=== PATIENT | male | born 1985 | race Caucasian/White ===

== ENCOUNTER → 2020-10-21 14:00 | Outpatient (CLI) | payer OTHER, MEDICAID, SELFPAY ==
[2020-10-21 14:56] LABS: COVID19 -Nasal RAPID Negative (Negative)
== END ==
PROVIDERS: Visit Provider Nurse Practitioner
DX: Z20.822 Contact with and (suspected) exposure to COVID-19 (principal)
CPT/HCPCS: 87635

== ENCOUNTER 2023-05-30 01:18 | Emergency (ER) | payer SELFPAY ==
[2023-05-30 01:19] VITALS: BP 142/87; PULSE 91; RESP 16; TEMP 36.8; O2SAT 95; BMI 28.5
[2023-05-30] MEDS: FLUORESCEIN 1 MG STRIP EYE-BOTH (01:25)
[2023-05-30] MEDS: PROPARACAINE 0.5% OPHTH SOL 1 DROPS EYE-LEFT (01:26)
--- NOTE | 2023-05-30 01:36 | ED.GENADULT ---
HPI - General Adult General Chief complaint: Eye Problems Stated complaint: SOMETHING IN RT EYE Time Seen by Provider: 05/30/23 01:20 Source: patient Mode of arrival: Ambulatory History of Present Illness HPI narrative: 38-year-old male. He is up-to-date on his tetanus. Is here for evaluation of concern for something in his right eye. He states that earlier today he was wearing safety glasses. He was using a device trying to remove the rust from a boat while at work. He states that the wind was blowing. Despite the safety goggles he felt like he got stuff in his eyes. He tried to wash it out prior to arrival. Continues to have irritation specifically in the right eye. Does not wear glasses or contacts. No prior eye surgeries. Related Data Previous Rx's Medication Instructions Recorded erythromycin 5 mg/gram (0.5 %) eye 0.5 inch EYE-BOTH TID 2 days #3.5 05/30/23 ointment grams Allergies Allergy/AdvReac Type Severity Reaction Status Date / Time No Known Allergies Allergy Uncoded 06/14/17 13:03 Review of Systems Eyes Eyes: Reports system reviewed and no additional complaints, except as documented Exam Initial Vital Signs Initial Vital Signs: Vital Signs Temperature 98.2 F 05/30/23 01:19 Pulse Rate 91 H 05/30/23 01:19 Respiratory Rate 16 05/30/23 01:19 Blood Pressure 142/87 H 05/30/23 01:19 Pulse Oximetry 95 05/30/23 01:19 Oxygen Delivery Method Room Air 05/30/23 01:19 Eyes Other: Under fluorescein and Wood's lamp there is obvious foreign bodies noted in both eyes. They appeared to be metal in origin. Pupils are equal round and reactive. No signs of open globe. No corneal abrasions noted. Skin General: no rashes or lesions noted Procedures Foreign Body EYE Location: eye (L) and eye (R) Topical anesthetic used: proparacaine Foreign body: metal Evidence of corneal penetration: No Technique: electric summer Procedure performed under: slit-lamp Post-procedure medication: ophthalmic antibiotic Patient tolerated procedure: well Course Orders Ordered: Discontinued Medications Erythromycin (Erythromycin Ophth 1 Gm Oint) 1 applic EYE-BOTH NOW ONE Stop: 05/30/23 02:06 Last Admin: 05/30/23 02:09 Dose: 1 applic Documented By: XOCHITL Fluorescein Sodium (Fluorescein 1 Mg Strip) 1 mg EYE-BOTH NOW ONE Stop: 05/30/23 01:21 Last Admin: 05/30/23 01:25 Dose: 1 mg Documented By: XOCHITL Proparacaine HCl (Proparacaine 0.5% Ophth Angy) 1 drops EYE-LEFT NOW ONE Stop: 05/30/23 01:21 Last Admin: 05/30/23 01:26 Dose: 1 drop Documented By: XOCHITL Vital Signs Vital signs: Vital Signs - 8 hr 05/30/23 01:19 Temperature 98.2 F Pulse Rate 91 H Respiratory Rate 16 Blood Pressure 142/87 H Pulse Oximetry 95 Oxygen Delivery Method Room Air Medical Decision Making MDM Narrative Medical decision making narrative: We did have the patient irrigate his eyes here in the emergency department. He would 1 metal foreign body located at the proximal 1 o'clock position of the left eye. This was removed easily with a bur. He had 2 foreign bodies in the right eye. The 1st 1 was located at approximately 0200 hours position. This was removed with a bur. The 2nd foreign body located at the 5 o'clock position. This was removed with a bur as well. Patient tolerated the procedure well. There was no signs of perforation. No signs of open globe. So placed on antibiotic ointment. He was up-to-date on tetanus. Was given care instructions and return precautions. He expressed understanding and agreement with plan. Discharge Plan Departure Patient Disposition: Home Clinical Impression: Corneal foreign body Instructions: DI for Corneal Foreign Body-Eye Activity Restrictions/Additional Instructions: I recommend that you use the erythromycin ointment as directed for the next 48 hours. It was sent to [facility] per your request. I do recommend that you gently wash your eyes with soap and water as there is still some residual material on the eyelashes/eyelids. Return to the emergency department for new or worsening symptoms. You can take Tylenol/ibuprofen for any discomfort. Prescriptions: New erythromycin 5 mg/gram (0.5 %) ointment 0.5 inch EYE-BOTH TID 2 Days Qty: 3.5 2RF Referrals: Miscellaneous,Doctor, [Primary Care Provider] - Stand Alone Forms: Patient Portal/API
[2023-05-30] MEDS: ERYTHROMYCIN OPHTH 1 GM OINT 1 APPLIC EYE-BOTH (02:09)
== END 2023-05-30 02:15 | disposition home or self-care (01) ==
PROVIDERS: Emergency Provider Emergency Medicine
DX: T15.02XA Foreign body in cornea, left eye, initial encounter (principal); T15.01XA Foreign body in cornea, right eye, initial encounter; W44.8XXA Other foreign body entering into or through a natural orifice, initial encounter
CPT/HCPCS: 65222; 99282; 99283